=== PATIENT | male | born 1975 | race Two or more races ===

== ENCOUNTER 2020-06-13 10:23 | Inpatient (IN) | payer MEDICAID ==
[~2020-06-13] VITALS: Ht 177.8 cm; Wt 63.0 kg
[2020-06-13] MEDS ORDERED: DOCUSATE 100 MG CAPSULE PO PRN ×2 (12:30→13:00)
[2020-06-13] MEDS ORDERED: ACETAMINOPHEN 325 MG TABLET PO PRN (12:30)
[2020-06-13] MEDS ORDERED: BISACODYL 10 MG SUPP PR PRN ×2 (12:30→13:00)
[2020-06-13] MEDS ORDERED: ONDANSETRON ODT 4 MG PO PRN ×2 (12:30→13:00)
[2020-06-13] MEDS ORDERED: POLYETHYLENE GLYCOL 17 GM PACKET PO PRN ×2 (12:30→13:00)
[2020-06-13] MEDS ORDERED: PLEASE ENTER ALLERGIES MC SCH (13:00)
[2020-06-13] MEDS ORDERED: PLEASE ENTER HEIGHT AND WEIGHT MC SCH (13:00)
[2020-06-13] MEDS: LORazepam 1MG TABLET PO SCH ×2 (17:05→20:31)
[2020-06-13 18:06] VITALS: BP 109/82
[2020-06-13] MEDS ORDERED: DIVA500T2 PO (18:55)
[2020-06-13] MEDS ORDERED: ASPI-963 PO (18:55)
[2020-06-13] MEDS ORDERED: LISI-170 PO (18:55)
[2020-06-13] MEDS ORDERED: QUET100T4 PO (18:55)
[2020-06-13] MEDS ORDERED: ZIPR40CA2 PO (18:55)
[2020-06-13] MEDS ORDERED: HYDR50CA PO (18:55)
[2020-06-13] MEDS ORDERED: CLON0.1T22 PO (18:55)
[2020-06-13] MEDS ORDERED: BUSP10TA PO (18:55)
[2020-06-13] MEDS ORDERED: TRAZ-175 PO (18:55)
[2020-06-13 19:38] VITALS: BP 124/80
[2020-06-13] MEDS: DIVALPROEX 500 MG TABLET.DR PO SCH (20:31)
[2020-06-13] MEDS: NICOTINE 21 MG/24 HR PATCH.TD24 TD SCH (20:31)
[2020-06-13] MEDS: ACETAMINOPHEN 325 MG TABLET PO PRN (20:38)
[2020-06-14] MEDS: LORazepam 1MG TABLET PO SCH ×4 (03:36→20:09)
[2020-06-14] MEDS: ACETAMINOPHEN 325 MG TABLET PO PRN ×4 (03:40→23:10)
[2020-06-14 05:47] LABS: CHOL/HDL RATIO 2.8; FREE T4 (FREE THYROXINE) 0.95 ng/dL (0.76-1.46); LDL/HDL RATIO 1.4 (0.5-3.0)
[2020-06-14 07:36] VITALS: BP 129/88
[2020-06-14] MEDS: FOLIC ACID 1 MG TABLET PO SCH (08:53)
[2020-06-14] MEDS: ASPIRIN 81 MG TABLET CHEW PO SCH (08:53)
[2020-06-14] MEDS: DIVALPROEX 500 MG TABLET.DR PO SCH ×3 (08:54→20:09)
[2020-06-14] MEDS: ACAMPROSATE 333 MG TABLET.DR PO SCH ×3 (08:54→20:09)
[2020-06-14] MEDS: THIAMINE 100MG TABLET PO SCH (08:54)
[2020-06-14] MEDS ORDERED: FOLIC ACID 1 MG TABLET PO SCH (09:00)
[2020-06-14] MEDS ORDERED: THIAMINE 100MG TABLET PO SCH (09:00)
[2020-06-14] MEDS ORDERED: IBUPROFEN 200 MG TABLET PO PRN (12:30)
[2020-06-14 18:25] VITALS: BP 130/91
[2020-06-14] MEDS: LORazepam 1MG TABLET PO PRN ×2 (18:36→23:10)
[2020-06-14 18:40] VITALS: BP 117/75
[2020-06-14] MEDS: IBUPROFEN 200 MG TABLET PO PRN (19:46)
[2020-06-14] MEDS: NICOTINE 21 MG/24 HR PATCH.TD24 TD SCH (20:10)
[2020-06-15] MEDS: LORazepam 1MG TABLET PO SCH ×4 (02:48→20:31)
[2020-06-15] MEDS: LORazepam 1MG TABLET PO PRN (06:45)
[2020-06-15 07:17] VITALS: BP 126/87
[2020-06-15] MEDS: FOLIC ACID 1 MG TABLET PO SCH (08:52)
[2020-06-15] MEDS: DIVALPROEX 500 MG TABLET.DR PO SCH ×3 (08:52→20:31)
[2020-06-15] MEDS: ASPIRIN 81 MG TABLET CHEW PO SCH (08:52)
[2020-06-15] MEDS: THIAMINE 100MG TABLET PO SCH (08:52)
[2020-06-15] MEDS: ACAMPROSATE 333 MG TABLET.DR PO SCH ×3 (08:52→20:31)
[2020-06-15] MEDS: ACETAMINOPHEN 325 MG TABLET PO PRN ×2 (09:03→16:22)
[2020-06-15] MEDS: IBUPROFEN 200 MG TABLET PO PRN ×2 (09:03→16:22)
[2020-06-15 19:29] VITALS: BP 115/78
[2020-06-15] MEDS: NICOTINE 21 MG/24 HR PATCH.TD24 TD SCH (20:31)
[2020-06-16] MEDS: LORazepam 1MG TABLET PO SCH ×2 (03:00→08:55)
[2020-06-16 07:33] VITALS: BP 127/92
[2020-06-16] MEDS: ASPIRIN 81 MG TABLET CHEW PO SCH (08:53)
[2020-06-16] MEDS: FOLIC ACID 1 MG TABLET PO SCH (08:53)
[2020-06-16] MEDS: DIVALPROEX 500 MG TABLET.DR PO SCH (08:53)
[2020-06-16] MEDS: THIAMINE 100MG TABLET PO SCH (08:53)
[2020-06-16] MEDS: ACAMPROSATE 333 MG TABLET.DR PO SCH (08:53)
[2020-06-16] MEDS: IBUPROFEN 200 MG TABLET PO PRN (10:24)
== END 2020-06-16 13:18 | disposition home or self-care (01) | DRG 753 ==
LOC: UNDOADMIN 12:04 → 3E 12:04
PROVIDERS: ADMIT Psychiatry & Neurology Psychosomatic Medicine; ATTEND Psychiatry & Neurology Psychosomatic Medicine
DX: F31.30 Bipolar disorder, current episode depressed, mild or moderate severity, unspecified (principal); G40.909 Epilepsy, unspecified, not intractable, without status epilepticus; R45.851 Suicidal ideations; F10.239 Alcohol dependence with withdrawal, unspecified; F41.1 Generalized anxiety disorder; I10 Essential (primary) hypertension; I49.9 Cardiac arrhythmia, unspecified; Z86.73 Personal history of transient ischemic attack (TIA), and cerebral infarction without residual deficits; Z79.899 Other long term (current) drug therapy; Z79.82 Long term (current) use of aspirin; Z88.0 Allergy status to penicillin; S92.352A Displaced fracture of fifth metatarsal bone, left foot, initial encounter for closed fracture; X58.XXXA Exposure to other specified factors, initial encounter; F17.210 Nicotine dependence, cigarettes, uncomplicated
CPT/HCPCS: 36415; 71045; 80061; 80164; 82140; 84439; 84443; 93005